=== PATIENT | male | born 1985 | race Caucasian/White ===

== ENCOUNTER 2016-03-21 03:54 | Emergency (ER) | payer OTHER ==
--- NOTE | 2016-03-21 04:17 | ED ---
General Adult HPI - General Chief complaint: Abdominal Pain Stated complaint: constipation Time Seen by Provider: 03/21/16 04:00 Source: patient, RN notes reviewed Mode of arrival: ambulatory Limitations: no limitations - History of Present Illness Initial comments: This is a 30-year-old male who presents emergency Department complaining of a three-day history of constipation. Patient states he has not had constipation problems before. Patient denies any narcotic use. Patient also complains that he has some hemorrhoids. Patient states he does have rectal pain and diffuse abdominal fullness. Patient denies any fever or chills patient denies any nausea vomiting patient denies any dysuria hematuria. Patient denies any other problems at this time. - Related Data Previous Rx's Medication Instructions Recorded Clindamycin HCl [Cleocin] 300 mg PO Q6H #40 cap 07/10/15 HYDROcodone/APAP 5-325MG [[place] 5] 1 each PO Q4HR PRN #20 tab 07/10/15 Levofloxacin [Levaquin] 750 mg PO DAILY #10 tab 03/21/16 metroNIDAZOLE [Flagyl] 500 mg PO QID 10 Days 03/21/16 Allergies Allergy/AdvReac Type Severity Reaction Status Date / Time Penicillins Allergy Unknown Verified 07/10/15 18:45 Childhood Review of Systems ROS Statement: Those systems with pertinent positive or pertinent negative responses have been documented in the HPI. ROS Other: All systems not noted in ROS Statement are negative. Past Medical History Past Medical History: No Reported History History of Any Multi-Drug Resistant Organisms: None Reported Past Surgical History: No Surgical Hx Reported Past Psychological History: Anxiety, Depression Smoking Status: Current every day smoker Past Alcohol Use History: None Reported Past Drug Use History: None Reported General Exam - General Exam Comments Initial Comments: GENERAL: Patient is well-developed and well-nourished. Patient is nontoxic and well- hydrated and is in moderate distress. ENT: Neck is soft and supple. No significant lymphadenopathy is noted. Oropharynx is clear. Moist mucous membranes. Neck has full range of motion without eliciting any pain. EYES: The sclera were anicteric and conjunctiva were pink and moist. Extraocular movements were intact and pupils were equal round and reactive to light. Eyelids were unremarkable. ABDOMEN: Soft and nontender with normal bowel sounds. No palpable organomegaly was noted. There is no palpable pulsatile mass. Rectal Patient appears to have a very small early abscess at the 12 o'clock position SKIN: Skin is clear with no lesions or rashes and otherwise unremarkable. NEUROLOGIC: Patient is alert and oriented x3. Cranial nerves II through XII are grossly intact. Motor and sensory are also intact. Normal speech, volume and content. Symmetrical smile. MUSCULOSKELETAL: Normal extremities with adequate strength and full range of motion. No lower extremity swelling or edema. No calf tenderness. LYMPHATICS: No significant lymphadenopathy is noted PSYCHIATRIC: Normal psychiatric evaluation. Normal interpersonal interactions appears functionally intact in deals appropriately with others. No signs of depression. No signs of anxiety. Limitations: no limitations Course Vital Signs 03/21/16 04:00 Temperature 96.6 F L Pulse Rate 74 Respiratory 16 Rate Blood Pressure 122/65 O2 Sat by Pulse 98 Oximetry Procedures - Incision & Drainage Consent Obtained: verbal consent Time Out Performed?: Yes Site: other (Perirectal) Anesthetic Used: lidocaine 1% I&D Cleaning Method: Chloroprep Sterile Field Used?: Yes Scalpel Used: #11 Needle Aspiration Performed?: Yes Irrigation Performed?: No I&D Drainage Obtained: Pus Culture Obtained?: No Complications: pain Patient Tolerated Procedure: well Medical Decision Making - Medical Decision Making KUB does show constipation. I did an I&D on the patient's rectal abscess I removed 4 mL of purulent fluid Disposition Clinical Impression: Rectal abscess, Constipation Disposition: HOME SELF-CARE Condition: Good Instructions: Abscess Incision and Drainage (ED), Constipation (ED), High Fiber Diet (ED) Additional Instructions: Patient should take some milk of magnesia Prescriptions: Levofloxacin [Levaquin] 750 mg PO DAILY #10 tab metroNIDAZOLE [Flagyl] 500 mg PO QID 10 Days Referrals: Andrea Louis MD [Primary Care Provider] - 1-2 days Time of Disposition: 04:34
--- NOTE | 2016-03-21 05:14 | XR ---
EXAMINATION TYPE: XR KUB DATE OF EXAM: 03/21/2016 4:35 AM CLINICAL HISTORY: Complains of constipation TECHNIQUE: 2 upright frontal radiographs of abdomen were obtained. COMPARISON: None. FINDINGS: There is moderate fecal material in the colon. No significant bowel obstruction is noted. Small bowel loops appear grossly unremarkable. There is no visceromegaly, pneumoperitoneum, or abnormal calcification appreciated. The lung bases are clear and the osseous structures are intact. IMPRESSION: Moderate fecal material in the colon. Overall nonobstructive bowel gas pattern.
[2016-03-21] MEDS ORDERED: KETOROLAC 60 MG/2 ML VIAL IM STA (05:21)
[2016-03-21] MEDS ORDERED: metroNIDAZOLE 500 MG TAB PO STA (05:22)
[2016-03-21] MEDS ORDERED: LEVOFLOXACIN 750 MG TAB PO STA (05:22)
[2016-03-21 05:33] VITALS: PULSE 68; RESP 18; TEMP 97.7
[2016-03-21 05:34] VITALS: BP 108/59
== END 2016-03-21 05:34 | disposition home or self-care (01) ==
LOC: EC 03:54
DX: K61.1 Rectal abscess (principal); K59.00 Constipation, unspecified; Z88.0 Allergy status to penicillin; F17.200 Nicotine dependence, unspecified, uncomplicated
CPT/HCPCS: 46040; 96372; 99284; 74000; J1885

== ENCOUNTER 2016-03-24 21:10 | Emergency (ER) | payer OTHER ==
[2016-03-24 21:28] VITALS: BP 132/63; PULSE 89; RESP 20; TEMP 98.9
[2016-03-24] MEDS ORDERED: HYDROcodone/APAP 5-325MG 1 EACH TAB PO STA (22:07)
--- NOTE | 2016-03-24 22:11 | ED ---
Skin/Abscess/FB HPI - General Chief complaint: Skin/Abscess/Foreign Body Stated complaint: abcess on rectum-revisit Time Seen by Provider: 03/24/16 21:52 Source: patient, RN notes reviewed Mode of arrival: ambulatory Limitations: no limitations - History of Present Illness Initial comments: 22-year-old male presents emergency department with a recheck of his rectal abscess. Patient states the senior underneath him underwent drainage of his rectal abscess. Patient states his. Today we do not follow-up care. Patient states today when he had a bowel movement heincreased drainage from the area states that he should be seen. Patient states he is still having pain to the rectum. Patient states that he has been using medications as prescribed. Patient states he is on antibiotics. Patient states that he was concerned due to the increased drainage without that he should be evaluated.Patient denies any recent fever, chills, shortness of breath, chest pain, back pain, abdominal pain, nausea vomiting, numbness or tingling, dysuria or hematuria, constipation or diarrhea, headaches or visual changes, or any other current symptoms. - Related Data Previous Rx's Medication Instructions Recorded Hydrocodone/Acetaminophen [[place] 1 each PO Q6HR PRN #10 tab 03/24/16 5-325] Sulfamethox-Tmp 800-160Mg [Bactrim 2 each PO Q12HR #56 tab 03/24/16 DS 800-160 mg] Allergies Allergy/AdvReac Type Severity Reaction Status Date / Time Penicillins Allergy Unknown Verified 03/24/16 21:29 Childhood Review of Systems ROS Statement: Those systems with pertinent positive or pertinent negative responses have been documented in the HPI. ROS Other: All systems not noted in ROS Statement are negative. Past Medical History Past Medical History: No Reported History History of Any Multi-Drug Resistant Organisms: None Reported Past Surgical History: No Surgical Hx Reported Past Psychological History: Anxiety, Depression Smoking Status: Current every day smoker Past Alcohol Use History: None Reported Past Drug Use History: None Reported General Exam Limitations: no limitations General appearance: alert, in no apparent distress Neck exam: Present: normal inspection. Absent: tenderness, meningismus, lymphadenopathy Respiratory exam: Present: normal lung sounds bilaterally. Absent: respiratory distress, wheezes, rales, rhonchi, stridor Cardiovascular Exam: Present: regular rate, normal rhythm, normal heart sounds. Absent: systolic murmur, diastolic murmur, rubs, gallop, clicks Rectal exam: Present: other (Patient does appear to have an abscess that is at the 12 o'clock position and location to the rectum that isn't draining actively on exam. There does not appear to be any induration. Does appear to be small in size with active drainage that is mostly bloody.) Back exam: Present: normal inspection Neurological exam: Present: alert, oriented X3, CN II-XII intact. Absent: motor sensory deficit Psychiatric exam: Present: normal affect, normal mood Skin exam: Present: warm, dry, intact, normal color. Absent: rash Course Vital Signs 03/24/16 21:27 Temperature 98.9 F Pulse Rate 89 Respiratory 20 Rate Blood Pressure 132/63 O2 Sat by Pulse 99 Oximetry Medical Decision Making - Medical Decision Making 30-year-old male presents emergency department with chief complaint of rectal abscess. This time it appears to be small and actively draining. We did discuss that we'll give him something to help with the pain. We discussed follow-up with surgeon and he is given on-call surgeries information. We discussed return parameters. Patient stated he understood and all his questions have been answered. He will be discharged home. Disposition Clinical Impression: Rectal abscess Disposition: HOME SELF-CARE Condition: Stable Instructions: Abscess (ED) Additional Instructions: Please use medication as discussed. Please follow up with family doctor if symptoms have not improved over the next two days. Please return to the emergency room if your symptoms increase or worsen or for any other concerns. Prescriptions: Hydrocodone/Acetaminophen [[place] 5-325] 1 each PO Q6HR PRN #10 tab PRN Reason: Pain Sulfamethox-Tmp 800-160Mg [Bactrim DS 800-160 mg] 2 each PO Q12HR #56 tab Referrals: Andrea Louis MD [Primary Care Provider] - 1-2 days Nicki Gallegos DO [Doctor of Osteopathic Medicine] - 1-2 days Time of Disposition: 22:11
== END 2016-03-24 22:15 | disposition home or self-care (01) ==
LOC: EC 21:10
DX: K61.1 Rectal abscess (principal); F17.200 Nicotine dependence, unspecified, uncomplicated; Z88.0 Allergy status to penicillin
CPT/HCPCS: 99282

== ENCOUNTER 2019-06-08 17:15 | Emergency (ER) | payer BC, OTHER ==
[2019-06-08 17:20] VITALS: TEMP 98
[2019-06-08] MEDS ORDERED: MORPHINE SULFATE 4 MG/ML SYRINGE IV STA (17:29)
[2019-06-08] MEDS ORDERED: SODIUM CHLORIDE 0.9% 1,000 ML IV STA ×2 (17:29→18:17)
--- NOTE | 2019-06-08 17:48 | ED ---
Chest Pain HPI - General Chief Complaint: Chest Pain Stated Complaint: Chest tightness Time Seen by Provider: 06/08/19 17:27 Source: patient, RN notes reviewed, old records reviewed Mode of arrival: ambulatory Limitations: no limitations - History of Present Illness Initial Comments: This is a 33-year-old male DF for evaluation patient Dese for evaluation regards to severe pain chest pain chest pain rating to his abdomen epigastric abdominal pain. States no prior history of similar pain pain started prior to arrival just prior to arrival patient states he feels little bit sweaty denies drug or alcohol use no history of any medical illness, patient does smoke. No recent travel history or sick contacts denying any history of fever nausea vomiting or diarrhea MD Complaint: chest pain -: hour(s) Onset: during rest Pain Location: substernal, left chest, epigastric Severity: severe Severity scale (1-10): 8 Quality: sharp Consistency: constant Improves With: nothing Worsens With: nothing Anginal Symptoms: diaphoresis, dyspnea Treatments Prior to Arrival: none - Related Data Previous Rx's Medication Instructions Recorded Hydrocodone/Acetaminophen [[place] 1 each PO Q6HR PRN #10 tab 03/24/16 5-325] Sulfamethox-Tmp 800-160Mg [Bactrim 2 each PO Q12HR #56 tab 03/24/16 DS 800-160 mg] Allergies Allergy/AdvReac Type Severity Reaction Status Date / Time Penicillins Allergy Unknown Verified 06/08/19 17:20 Childhood Review of Systems ROS Statement: Those systems with pertinent positive or pertinent negative responses have been documented in the HPI. ROS Other: All systems not noted in ROS Statement are negative. EKG Findings - EKG Comments: EKG Findings:: EKG shows sinus rhythm 75, [place] 172, QRS 90, QTc 417 Past Medical History Past Medical History: No Reported History History of Any Multi-Drug Resistant Organisms: None Reported Past Surgical History: No Surgical Hx Reported Past Psychological History: Anxiety, Depression Smoking Status: Current every day smoker Past Alcohol Use History: None Reported Past Drug Use History: None Reported General Exam Limitations: no limitations General appearance: alert, anxious, in distress, other (diaphoretic) Head exam: Present: atraumatic, normocephalic, normal inspection Eye exam: Present: normal appearance, PERRL, EOMI. Absent: scleral icterus, conjunctival injection, periorbital swelling ENT exam: Present: normal exam, mucous membranes moist Neck exam: Present: normal inspection. Absent: tenderness, meningismus, lymphadenopathy Respiratory exam: Present: normal lung sounds bilaterally. Absent: respiratory distress, wheezes, rales, rhonchi, stridor Cardiovascular Exam: Present: regular rate, normal rhythm, normal heart sounds. Absent: systolic murmur, diastolic murmur, rubs, gallop, clicks GI/Abdominal exam: Present: soft, normal bowel sounds. Absent: distended, tenderness, guarding, rebound, rigid Extremities exam: Present: normal inspection, full ROM, normal capillary refill. Absent: tenderness, pedal edema, joint swelling, calf tenderness Back exam: Present: normal inspection Neurological exam: Present: alert, oriented X3, CN II-XII intact Psychiatric exam: Present: normal affect, normal mood Skin exam: Present: warm, dry, intact, normal color. Absent: rash Course Vital Signs 06/08/19 06/08/19 06/08/19 17:17 17:49 18:08 Temperature 98.0 F Pulse Rate 75 74 76 Respiratory 22 16 16 Rate Blood Pressure 117/80 110/60 106/68 O2 Sat by Pulse 97 95 Oximetry 06/08/19 18:51 Temperature Pulse Rate 80 Respiratory 16 Rate Blood Pressure 151/84 O2 Sat by Pulse 100 Oximetry - Reevaluation(s) Reevaluation #1: 06/08/19 18:24 Medical record is reviewed Reevaluation #2: 06/08/19 18:24 Computed tomography scan is delayed secondary to COVID patient being in computed tomography scan, decontamination and inability to take patient down secondary to COVID patient Reevaluation #3: 06/08/19 19:17 Patient reassess having no acute shortness of breath chest pain is significantly improved pain medication in the ER Reevaluation #4: 06/08/19 19:17 Patient is updated made aware findings with labs and computed tomography scan, questions answered Reevaluation #5: 06/08/19 19:17 Patient given strict return parameters including symptoms watch out for, shortness of breath increasing fever decreasing appetite and malnutrition, anorexia. Patient denying current shortness of breath, symptoms started today patient informed symptoms are probably progressively get worse over the next week, patient states that he does have placed a quarantined and will return if symptoms do worsen Chest Pain MDM - MDM 33 male DF for evaluation of nonspecific chest pain. Patient states he does feel little weak and dehydrated, feeling better here in the emergency room with chest pain control, CT could be concerning for cold-like findings, patient is afebrile no laboratory changes in the 100% pulse ox on room air. Patient will be discharged home return for worsening symptoms Disposition Clinical Impression: Chest pain, Viral syndrome Narrative: possible COVID changes on CT Disposition: HOME SELF-CARE Condition: Good Instructions (If sedation given, give patient instructions): Chest Pain (ED), Viral Syndrome (ED) Is patient prescribed a controlled substance at d/c from ED?: No Referrals: Andrea Louis MD [Primary Care Provider] - 1-2 days
[2019-06-08 17:50] LABS: Basophils % (A) 0 %; Eosinophils # (A) 0.5 k/uL (0-0.7); Eosinophils % (A) 5 %; HCT 47.7 % (39.0-53.0); HGB 16.1 gm/dL (13.0-17.5); Lymphocytes # (A) 0.9 k/uL (1.0-4.8); Lymphocytes % (A) 9 %; MCH 30.8 pg (25.0-35.0); MCHC 33.7 g/dL (31.0-37.0); MCV 91.5 fL (80.0-100.0); Mean Platelet Volume 8.3; Monocytes # (A) 0.7 k/uL (0-1.0); Monocytes % (A) 7 %; Neutrophils # (A) 7.6 k/uL (1.3-7.7); Neutrophils % (A) 76 %; Platelet Count 259 k/uL (150-450); RBC 5.21 m/uL (4.30-5.90); RDW 12.4 % (11.5-15.5)
[2019-06-08 17:52] VITALS: RESP 16
--- NOTE | 2019-06-08 17:52 | XR ---
EXAMINATION TYPE: XR chest 2V DATE OF EXAM: 06/08/2019 COMPARISON: NONE HISTORY: Weakness, chest tightness, shortness of breath for one hour. TECHNIQUE: Frontal and lateral views of the chest are obtained. FINDINGS: There is no focal air space opacity, pleural effusion, or pneumothorax seen. The cardiac silhouette size is within normal limits. The osseous structures are intact. IMPRESSION: No acute cardiopulmonary process.
[2019-06-08 18:01] LABS: ALT 96 U/L (4-49); AST 46 U/L (17-59); African American GFR (CKD) >90 (>60 ml/min/1.73 sqM); Albumin 4.6 g/dL (3.5-5.0); Alkaline Phosphatase 122 U/L (38-126); Anion Gap 8 mmol/L; Blood Urea Nitrogen 16 mg/dL (9-20); Calcium 9.3 mg/dL (8.4-10.2); Carbon Dioxide 28 mmol/L (22-30); Chloride 103 mmol/L (98-107); Creatine Kinase 87 U/L (55-170); Glucose 112 mg/dL (74-99); Magnesium 1.9 mg/dL (1.6-2.3); Non-African American GFR(CKD) >90 (>60 ml/min/1.73 sqM); Phosphorus 3.6 mg/dL (2.5-4.5); Potassium 4.1 mmol/L (3.5-5.1); Sodium 139 mmol/L (137-145); Total Bilirubin 0.4 mg/dL (0.2-1.3); Total Protein 7.1 g/dL (6.3-8.2)
[2019-06-08 18:04] LABS: Partial Thromboplastin Time 23.1 sec (22.0-30.0); Prothrombin Time 10.1 sec (9.0-12.0)
[2019-06-08 18:20] LABS: Appearance,Urine Clear (Clear); Bilirubin,Urine Negative (Negative); Blood,Urine Negative (Negative); Color,Urine Yellow; Glucose,Urine (UA) Negative (Negative); Ketones,Urine Negative (Negative); Leukocyte Esterase,Urine Negative (Negative); Nitrite,Urine Negative (Negative); PH, Urine 6.5 (5.0-8.0); Protein,Urine Trace (Negative); Specific Gravity,Urine 1.027 (1.001-1.035)
[2019-06-08 18:52] VITALS: BP 151/84; PULSE 80
--- NOTE | 2019-06-08 19:05 | CT ---
EXAMINATION TYPE: CT angio thor/abd pel aorta DATE OF EXAM: 06/08/2019 COMPARISON: None. HISTORY: Chest pain today into back. CT DLP: 2446.8 mGycm. Automated Exposure Control for Dose Reduction was Utilized. CONTRAST: CTA scan of the thorax, abdomen and pelvis is performed without oral and without and with IV Contrast , patient injected with 100 mL of Isovue 370. Aneurysm protocol with 3-D reconstructed images created on a independent workstation and reviewed. FINDINGS: VASCULAR: There is a 4 vessel origin from aortic arch which is normal variant. There is patent celiac artery, SMA, bilateral single renal arteries, and ELEANOR. Patent common alignment with internal and ext ernal iliac arteries bilaterally. Patent common femoral arteries and bilateral groin with bifurcation into superficial and deep femoral arteries. No significant plaque or stenosis. No aneurysmal change in the aorta. No linear hypodensity to suggest dissection. LUNGS: Mild biapical pleural/parenchymal scarring. Slightly elevated left hemidiaphragm. Nonspecific areas of increased groundglass and linear opacity in the bilateral lower lobes more prominent posteri mary could reflect a combination of atelectasis and/or early infiltrates. Correlate clinically. No pl eural effusion or pneumothorax seen bilaterally. MEDIASTINUM: There are no greater than 1 cm hilar or mediastinal lymph nodes. No cardiomegaly or pe ricardial effusion is seen. LIVER/GB: No significant abnormality is appreciated. PANCREAS: No significant abnormality is seen. SPLEEN: No significant abnormality is seen. ADRENALS: No significant abnormality is seen. KIDNEYS: No significant abnormality is seen. BOWEL: Debris-filled stomach suggests recent meal ingestion. No suspicious small or large bowel dilat ation. GENITAL ORGANS: No gross abnormality seen. LYMPH NODES: No greater than 1cm abdominal or pelvic lymph nodes are appreciated. OSSEOUS STRUCTURES: Sacralized left L5 segment. OTHER: Small to moderate-sized fat-containing left inguinal hernia. IMPRESSION: No thoracic aortic aneurysm or dissection. No suspicious acute findings intraoperative p atient's symptoms of chest pain into back.
[2019-06-08 19:34] LABS: Amphetamine Screen,Urine Not Detected (NotDetected); Barbiturate Screen,Urine Not Detected (NotDetected); Benzodiazepines Screen,Urine Not Detected (NotDetected); Cocaine Screen,Urine Not Detected (NotDetected); Methadone Screen, Urine Not Detected (NotDetected); Opiate Screen,Urine Detected (NotDetected); Oxycodone Screen, Urine Not Detected (NotDetected); Phencyclidine Screen,Urine Not Detected (NotDetected); Tricyclic Antidepressant,Urine Not Detected (NotDetected); Urn Cannabinoid Scrn Not Detected (NotDetected)
== END 2019-06-08 19:52 | disposition home or self-care (01) ==
LOC: EC 17:15
DX: B34.9 Viral infection, unspecified (principal); E86.0 Dehydration; F17.200 Nicotine dependence, unspecified, uncomplicated; Z88.0 Allergy status to penicillin
CPT/HCPCS: 99285 ×2; 96374 ×2; 96361 ×3; 36415; 80053; 82550; 83605; 83735; 84100; 84484; 85025; 85610; 85730; 81003; 87040; 80306; 71046; 71275; 74174; J2270; Q9967

== ENCOUNTER → 2020-07-04 | Outpatient (CLI) | payer OTHER ==
--- NOTE | 2020-07-04 15:39 | EEG ---
ELECTROENCEPHALOGRAM REPORT DATE OF SERVICE: 07/04/2020 PREAMBLE: This is a 35-year-old male who has presented with memory loss and memory flashes since this past summer. The patient had COVID in May and continues to have respiratory issues. Family history of seizures. Sister and daughter has 2-3 febrile seizures. The patient had 5 concussions when younger, twice with loss of consciousness. This is a sleep-deprived EEG. EEG FINDINGS: This is a 21 channel routine EEG recording in a patient utilizing 10/20 international system with referential and bipolar montages. Background consists of well developed, well regulated, moderate voltage activity in 10-11 hertz alpha. Background is posterior dominant and reactive to eye opening and closing. Photic driving response was not seen. Some drowsiness was seen with appearance of bilaterally symmetric theta frequency rhythm. Stage 2 sleep was seen with presence of vertex waves and sleep spindles. No focal or generalized epileptiform activity was seen. EKG channel showed no arrhythmia. IMPRESSION: This is a normal awake, drowsy, and sleep EEG. No focal, lateralized, or epileptiform activity was seen. MMODL / IJN: [id number] /
== END ==
LOC: NEUROMAIN 07:47
PROVIDERS: ATTEND Family Medicine
DX: R41.3 Other amnesia (principal)
CPT/HCPCS: 95819

== ENCOUNTER 2020-10-25 06:17 | Emergency (ER) | payer OTHER ==
[2020-10-25 06:22] VITALS: TEMP 98.2
[2020-10-25] MEDS ORDERED: SODIUM CHLORIDE 0.9% 1,000 ML IV STA (06:32)
[2020-10-25] MEDS ORDERED: MAG HYDROX/AL HYDROX/SIMETH 30 ML, HYOSCYAMINE ELIXIR 10 ML PO STA ×2 (06:32)
[2020-10-25 06:57] LABS: Basophils % (A) 0 %; Eosinophils # (A) 0.4 k/uL (0-0.7); Eosinophils % (A) 4 %; HCT 45.6 % (39.0-53.0); HGB 15.7 gm/dL (13.0-17.5); Lymphocytes # (A) 0.9 k/uL (1.0-4.8); Lymphocytes % (A) 11 %; MCH 33.2 pg (25.0-35.0); MCHC 34.4 g/dL (31.0-37.0); MCV 96.6 fL (80.0-100.0); Mean Platelet Volume 7.7; Monocytes # (A) 0.4 k/uL (0-1.0); Monocytes % (A) 5 %; Neutrophils # (A) 6.5 k/uL (1.3-7.7); Neutrophils % (A) 78 %; Platelet Count 235 k/uL (150-450); RBC 4.72 m/uL (4.30-5.90); WBC 8.3 k/uL (3.8-10.6)
--- NOTE | 2020-10-25 07:01 | ED ---
Abdominal Pain HPI - General Chief Complaint: Abdominal Pain Stated Complaint: L Flank Pain Time Seen by Provider: 10/25/20 06:27 Source: patient, RN notes reviewed Mode of arrival: ambulatory Limitations: no limitations - History of Present Illness Initial Comments: This a 35-year-old male presents emergency Department with chief complaint left- sided abdominal pain. Patient states that started yesterday has gradually worsened. Patient states sharp, burning sensation. Patient states it's in his left upper quadrant. States it does radiate some denies any chest pain or shortness breath no diarrhea, constipation, dysuria, hematuria. Patient states she's had no prior abdominal surgeries denies any back pain no history kidney stones no other complaints. - Related Data Previous Rx's Medication Instructions Recorded Hydrocodone/Acetaminophen [[place] 1 each PO Q6HR PRN #10 tab 03/24/16 5-325] Sulfamethox-Tmp 800-160Mg [Bactrim 2 each PO Q12HR #56 tab 03/24/16 DS 800-160 mg] Omeprazole [PriLOSEC] 40 mg PO DAILY #14 cap 10/25/20 Allergies Allergy/AdvReac Type Severity Reaction Status Date / Time Penicillins Allergy Unknown Verified 10/25/20 06:22 Childhood Review of Systems ROS Statement: Those systems with pertinent positive or pertinent negative responses have been documented in the HPI. ROS Other: All systems not noted in ROS Statement are negative. Past Medical History Past Medical History: Asthma History of Any Multi-Drug Resistant Organisms: None Reported, MRSA Date of last positivie culture/infection: 05/2020 MDRO Source:: inner left thigh Past Surgical History: No Surgical Hx Reported Past Psychological History: Anxiety, Depression Smoking Status: Current every day smoker Past Alcohol Use History: Occasional Past Drug Use History: None Reported General Exam Limitations: no limitations General appearance: alert, in no apparent distress Head exam: Present: atraumatic, normocephalic, normal inspection Neck exam: Present: normal inspection, full ROM. Absent: tenderness, meningismus, lymphadenopathy Respiratory exam: Present: normal lung sounds bilaterally. Absent: respiratory distress, wheezes, rales, rhonchi, stridor Cardiovascular Exam: Present: regular rate, normal rhythm, normal heart sounds. Absent: systolic murmur, diastolic murmur, rubs, gallop, clicks GI/Abdominal exam: Present: soft, tenderness (Left upper quadrant), normal bowel sounds. Absent: distended, guarding, rebound, rigid Back exam: Absent: CVA tenderness (R), CVA tenderness (L) Neurological exam: Present: alert Skin exam: Present: warm, dry, intact, normal color. Absent: rash Course Vital Signs 10/25/20 10/25/20 06:18 07:54 Temperature 98.2 F Pulse Rate 73 63 Respiratory 20 16 Rate Blood Pressure 120/77 123/70 O2 Sat by Pulse 98 100 Oximetry Medical Decision Making - Medical Decision Making 35-year-old presented for abdominal pain. Patient did have some mild relief with GI cocktail. CT shows evidence of hepatomegaly and splenomegaly a though this was noted on prior secondary larger. There is no evidence of urinary tract infection, labs otherwise unremarkable. Patient discharged stable condition return parameters were discussed. Patient will be provided and GI follow-up. - Lab Data Result diagrams: 10/25/20 06:36 10/25/20 06:36 Lab Results 10/25/20 10/25/20 10/25/20 Range/Units 06:36 06:36 06:36 WBC 8.3 (3.8-10.6) k/uL RBC 4.72 (4.30-5.90) m/uL Hgb 15.7 (13.0-17.5) gm/dL Hct 45.6 (39.0-53.0) % MCV 96.6 (80.0-100.0) fL MCH 33.2 (25.0-35.0) pg MCHC 34.4 (31.0-37.0) g/dL RDW 14.0 (11.5-15.5) % Plt Count 235 (150-450) k/uL MPV 7.7 Neutrophils % 78 % Lymphocytes % 11 % Monocytes % 5 % Eosinophils % 4 % Basophils % 0 % Neutrophils # 6.5 (1.3-7.7) k/uL Lymphocytes # 0.9 L (1.0-4.8) k/uL Monocytes # 0.4 (0-1.0) k/uL Eosinophils # 0.4 (0-0.7) k/uL Basophils # 0.0 (0-0.2) k/uL Sodium 138 (137-145) mmol/L Potassium 4.4 (3.5-5.1) mmol/L Chloride 106 (98-107) mmol/L Carbon Dioxide 24 (22-30) mmol/L Anion Gap 8 mmol/L BUN 18 (9-20) mg/dL Creatinine 0.82 (0.66-1.25) mg/dL Est GFR (CKD-EPI)AfAm >90 (>60 ml/min/1.73 sqM) Est GFR (CKD-EPI)NonAf >90 (>60 ml/min/1.73 sqM) Glucose 101 H (74-99) mg/dL Calcium 9.4 (8.4-10.2) mg/dL Total Bilirubin 0.3 (0.2-1.3) mg/dL AST 37 (17-59) U/L ALT 58 H (4-49) U/L Alkaline Phosphatase 162 H (38-126) U/L Total Protein 7.2 (6.3-8.2) g/dL Albumin 4.5 (3.5-5.0) g/dL Lipase 196 (23-300) U/L Urine Color Yellow Urine Appearance Clear (Clear) Urine pH 5.5 (5.0-8.0) Ur Specific [place] >1.050 H (1.001-1.035) Urine Protein Trace H (Negative) Urine Glucose (UA) Negative (Negative) Urine Ketones Negative (Negative) Urine Blood Negative (Negative) Urine Nitrite Negative (Negative) Urine Bilirubin Negative (Negative) Urine Urobilinogen 2.0 (<2.0) mg/dL Ur Leukocyte Esterase Negative (Negative) Disposition Clinical Impression: Abdominal pain, Gastritis Disposition: HOME SELF-CARE Condition: Stable Instructions (If sedation given, give patient instructions): Gastritis (ED) Additional Instructions: Please return to the Emergency Department if symptoms worsen or any other concerns. Prescriptions: Omeprazole [PriLOSEC] 40 mg PO DAILY #14 cap Is patient prescribed a controlled substance at d/c from ED?: No Referrals: Magdalena Rodriguez NPC [REFERRING] - 1-2 days Irma Hendrix MD [STAFF PHYSICIAN] - 1-2 days Time of Disposition: 08:54
[2020-10-25 07:11] LABS: ALT 58 U/L (4-49); AST 37 U/L (17-59); African American GFR (CKD) >90 (>60 ml/min/1.73 sqM); Albumin 4.5 g/dL (3.5-5.0); Alkaline Phosphatase 162 U/L (38-126); Anion Gap 8 mmol/L; Blood Urea Nitrogen 18 mg/dL (9-20); Calcium 9.4 mg/dL (8.4-10.2); Carbon Dioxide 24 mmol/L (22-30); Chloride 106 mmol/L (98-107); Glucose 101 mg/dL (74-99); Lipase 196 U/L (23-300); Non-African American GFR(CKD) >90 (>60 ml/min/1.73 sqM); Potassium 4.4 mmol/L (3.5-5.1); Sodium 138 mmol/L (137-145); Total Bilirubin 0.3 mg/dL (0.2-1.3); Total Protein 7.2 g/dL (6.3-8.2)
--- NOTE | 2020-10-25 07:37 | CT ---
EXAMINATION TYPE: CT abdomen pelvis w con DATE OF EXAM: 10/25/2020 COMPARISON: 06/08/2019 HISTORY: 35-year-old male Abdominal pain TECHNIQUE: Contiguous axial scanning of the abdomen and pelvis following administration of 100 ml Iso amado 300 IV contrast. Delayed images through the kidneys and coronal/sagittal reconstructions perform ed. CT DLP: 1533.6 mGycm Automated exposure control for dose reduction was used. FINDINGS: Heart normal size without pericardial effusion. Lung bases clear without pleural effusion. Liver enlarged at 19.4 cm versus 18.3 cm, previously. No focal liver lesion or biliary ductal dilatat ion. Portal venous system is patent. Gallbladder is collapsed. Adrenal glands, kidneys, and pancreas within normal limits. Spleen mildly enlarged at 14.7 cm, unchanged. No dilated small bowel, free fluid, or free air. No mesenteric or retroperitoneal lymphadenopathy. Portions of a normal appendix are visualized. There is mild stool burden. No pericolic inflammatory c hange. Mild circumferential bladder wall thickening may relate to partial distention. Prostate gland measure s 4.3 cm wide. No abnormal fluid collection in the pelvis or pelvic lymphadenopathy. Bones: Left L5 hemisacralization with an assimilation joint. No osseous destructive process. IMPRESSION: 1. MILD HEPATOSPLENOMEGALY (19.4 CM LIVER AND 14.7 CM SPLEEN). LIVER PREVIOUSLY MEASURED 18.3 CM. SPL EEN SIZE IS UNCHANGED. 2. MILD CIRCUMFERENTIAL BLADDER WALL THICKENING MAY RELATE TO PARTIAL DISTENTION. CORRELATE TO EXCLUD E CYSTITIS. 3. OTHERWISE, NO ACUTE INFLAMMATORY PROCESS IDENTIFIED IN THE ABDOMEN OR PELVIS TO EXPLAIN THE PATIEN T'S SYMPTOMS. 4. INCIDENTAL LEFT L5 HEMISACRALIZATION WITH AN ASSIMILATION JOINT.
[2020-10-25 07:55] VITALS: BP 123/70; PULSE 63; RESP 16
[2020-10-25] MEDS ORDERED: KETOROLAC 15 MG/ML 1 ML VIAL IVP STA (07:55)
[2020-10-25 08:25] LABS: Appearance,Urine Clear (Clear); Bilirubin,Urine Negative (Negative); Blood,Urine Negative (Negative); Color,Urine Yellow; Glucose,Urine (UA) Negative (Negative); Ketones,Urine Negative (Negative); Leukocyte Esterase,Urine Negative (Negative); Nitrite,Urine Negative (Negative); PH, Urine 5.5 (5.0-8.0); Protein,Urine Trace (Negative)
[2020-10-25 08:51] LABS: Specific Gravity,Urine >1.050 (1.001-1.035)
[2020-10-25] MEDS ORDERED: ACET/COD 300 MG/30 MG STARTER PACK 6 TAB BTL PO STA (08:54)
== END 2020-10-25 09:06 | disposition home or self-care (01) ==
LOC: EC 06:17
DX: K29.70 Gastritis, unspecified, without bleeding (principal); J45.909 Unspecified asthma, uncomplicated; F17.200 Nicotine dependence, unspecified, uncomplicated; Z88.0 Allergy status to penicillin
CPT/HCPCS: 36415; 80053; 83690; 85025; 81003; 74177; 99284; 96374; 96361; J1885; Q9967

== ENCOUNTER → 2021-02-18 | Outpatient (CLI) | payer OTHER ==
--- NOTE | 2021-02-18 10:42 | US ---
EXAMINATION TYPE: US abdomen complete DATE OF EXAM: 02/18/2021 COMPARISON: NONE CLINICAL HISTORY: R10.9 ABDOMINAL PAIN. EXAM MEASUREMENTS: Liver Length: 15.2 cm Gallbladder Wall: 0.2 cm CBD: 0.4 cm Spleen: 13.9 cm Right Kidney: 10.6 x 4.2 x 5.4 cm Left Kidney: 11.4 x 5.2 x 4.9 cm Pancreas: Portions visualized wnl partially obscured by bowel gas Liver: wnl Gallbladder: echogenic foci, non-mobile measuring 0.4cm, no wall thickening Evidence for sonographic Louise's sign: No CBD: wnl Spleen: splenomegaly Right Kidney: Inferior pole obscured by bowel gas Left Kidney: Inferior pole obscured by bowel gas Upper IVC: wnl Abd Aorta: bifurcation obscured by overlying bowel gas IMPRESSION: 1. Cholelithiasis. No suspicious changes to suggest acute cholecystitis. 2. Splenomegaly
== END | disposition home or self-care (01) ==
LOC: RADUSWWP 09:44
PROVIDERS: ATTEND Family Medicine
DX: K80.20 Calculus of gallbladder without cholecystitis without obstruction (principal); R16.1 Splenomegaly, not elsewhere classified
CPT/HCPCS: 76700

== ENCOUNTER 2021-02-28 11:37 | Emergency (ER) | payer OTHER ==
[2021-02-28 11:45] VITALS: BP 127/83; PULSE 63; RESP 18; TEMP 98
--- NOTE | 2021-02-28 11:55 | ED ---
General Adult HPI - General Chief complaint: Syncope Stated complaint: fall/head injury Time Seen by Provider: 02/28/21 11:46 Source: patient Mode of arrival: ambulatory Limitations: no limitations - History of Present Illness Initial comments: Dictation was produced using [employer] dictation software. please excuse any grammatical, word or spelling errors. Chief Complaint: 35-year-old male presents to the emergency department for abdo sandra pain and syncope History of Present Illness: 35-year-old male who states that today he started developing left lower quadrant abdominal pain. He states that the pain was too left lower quadrant and suprapubic area. Patient states he was bending over when he felt intense pain to his abdominal area. He knows he passes out and wakes up with The ceiling. Patient denies any history of syncope. Denies any history of cardiac disease. He takes multiple medications including lithium and other psychiatric meds. Patient denies any constitutional symptoms. No diarrhea but hasn't had a bowel movement the last 12 hours. No nausea or vomiting. Patient is history of gallstones and is scheduled for cholecystectomy in the near future. The ROS documented in this emergency department record has been reviewed and confirmed by me. Those systems with pertinent positive or negative responses have been documented in the HPI. All other systems are other negative and/or noncontributory. PHYSICAL EXAM: General Impression: Alert and oriented x3, not in acute distress HEENT: Normocephalic atraumatic, extra-ocular movements intact, pupils equal and reactive to light bilaterally, mucous membranes moist. Cardiovascular: Heart regular rate and rhythm Chest: Able to complete full sentences, no retractions, no tachypnea Abdomen: abdomen soft, negative Louise sign, palpatory tenderness to the left lower quadrant and suprapubic area, no pain in McBurney's point, non-distended, no organomegaly Musculoskeletal: Pulses present and equal in all extremities, no peripheral edema Motor: no focal deficits noted Neurological: CN II-XII grossly intact, no focal motor or sensory deficits noted Skin: Intact with no visualized rashes Psych: Normal affect and mood ED course: 35-year-old male presents emergency department for abdominal pain and syncopal episode. Vital signs upon arrival are within acceptable limits. Laboratory evaluation obtained. CBC unremarkable. Metabolic panel is negative. Urinalysis is negative. [place] level was 0.2. Computed tomography scan abdomen pelvis is unremarkable. Patient reevaluated at bedside finally stable medical condition. Patient be discharge. Advised follow-up with primary care doctor. EKG interpretation: Ventricular rate 57, sinus bradycardia,. Interval 180, QRS 92, QTC 426. No [place] prolongation, no QTC prolongation, no ST or T-wave changes noted. No prolonged QT, no evidence of hypertrophic cardiomyopathy, no Brugada, no delta wave Overall, this EKG is unremarkable - Related Data Previous Rx's Medication Instructions Recorded Hydrocodone/Acetaminophen [[place] 1 each PO Q6HR PRN #10 tab 03/24/16 5-325] Sulfamethox-Tmp 800-160Mg [Bactrim 2 each PO Q12HR #56 tab 03/24/16 DS 800-160 mg] Omeprazole [PriLOSEC] 40 mg PO DAILY #14 cap 10/25/20 Allergies Allergy/AdvReac Type Severity Reaction Status Date / Time Penicillins Allergy Unknown Verified 02/28/21 11:44 Childhood Review of Systems ROS Statement: Those systems with pertinent positive or pertinent negative responses have been documented in the HPI. ROS Other: All systems not noted in ROS Statement are negative. Past Medical History Past Medical History: Asthma Additional Past Medical History / Comment(s): gallstones History of Any Multi-Drug Resistant Organisms: None Reported, MRSA Date of last positivie culture/infection: 05/2020 MDRO Source:: inner left thigh Past Surgical History: No Surgical Hx Reported Past Psychological History: Anxiety, Depression Smoking Status: Current every day smoker Past Alcohol Use History: Occasional Past Drug Use History: Marijuana General Exam Limitations: no limitations Course Vital Signs 02/28/21 11:41 Temperature 98.0 F Pulse Rate 63 Respiratory 18 Rate Blood Pressure 127/83 O2 Sat by Pulse 100 Oximetry Medical Decision Making - Lab Data Result diagrams: 02/28/21 12:05 02/28/21 12:05 Lab Results 02/28/21 02/28/21 02/28/21 Range/Units 12:05 12:05 12:45 WBC 8.0 (3.8-10.6) k/uL RBC 4.96 (4.30-5.90) m/uL Hgb 15.9 (13.0-17.5) gm/dL Hct 46.1 (39.0-53.0) % MCV 93.0 (80.0-100.0) fL MCH 32.0 (25.0-35.0) pg MCHC 34.4 (31.0-37.0) g/dL RDW 12.1 (11.5-15.5) % Plt Count 229 (150-450) k/uL MPV 7.6 Neutrophils % 76 % Lymphocytes % 11 % Monocytes % 5 % Eosinophils % 5 % Basophils % 1 % Neutrophils # 6.1 (1.3-7.7) k/uL Lymphocytes # 0.9 L (1.0-4.8) k/uL Monocytes # 0.4 (0-1.0) k/uL Eosinophils # 0.4 (0-0.7) k/uL Basophils # 0.1 (0-0.2) k/uL Sodium 136 L (137-145) mmol/L Potassium 5.0 (3.5-5.1) mmol/L Chloride 104 (98-107) mmol/L Carbon Dioxide 22 (22-30) mmol/L Anion Gap 10 mmol/L BUN 16 (9-20) mg/dL Creatinine 0.94 (0.66-1.25) mg/dL Est GFR (CKD-EPI)AfAm >90 (>60 ml/min/1.73 sqM) Est GFR (CKD-EPI)NonAf >90 (>60 ml/min/1.73 sqM) Glucose 96 (74-99) mg/dL Calcium 9.6 (8.4-10.2) mg/dL Total Bilirubin 0.8 (0.2-1.3) mg/dL AST 34 (17-59) U/L ALT 33 (4-49) U/L Alkaline Phosphatase 98 (38-126) U/L Total Protein 7.7 (6.3-8.2) g/dL Albumin 4.7 (3.5-5.0) g/dL Lipase 45 (23-300) U/L Urine Color Light Yellow Urine Appearance Clear (Clear) Urine pH 5.5 (5.0-8.0) Ur Specific [place] 1.023 (1.001-1.035) Urine Protein Negative (Negative) Urine Glucose (UA) Negative (Negative) Urine Ketones Negative (Negative) Urine Blood Negative (Negative) Urine Nitrite Negative (Negative) Urine Bilirubin Negative (Negative) Urine Urobilinogen <2.0 (<2.0) mg/dL Ur Leukocyte Esterase Negative (Negative) [place] 0.2 mmol/L Disposition Clinical Impression: Abdominal pain, Syncope Disposition: HOME SELF-CARE Condition: Fair Instructions (If sedation given, give patient instructions): Abdominal Pain (ED) Is patient prescribed a controlled substance at d/c from ED?: No Referrals: Andrea Louis MD [Primary Care Provider] - 1-2 days
[2021-02-28 12:13] LABS: Basophils # (A) 0.1 k/uL (0-0.2); Basophils % (A) 1 %; Eosinophils # (A) 0.4 k/uL (0-0.7); Eosinophils % (A) 5 %; HCT 46.1 % (39.0-53.0); HGB 15.9 gm/dL (13.0-17.5); Lymphocytes # (A) 0.9 k/uL (1.0-4.8); Lymphocytes % (A) 11 %; MCHC 34.4 g/dL (31.0-37.0); Mean Platelet Volume 7.6; Monocytes # (A) 0.4 k/uL (0-1.0); Monocytes % (A) 5 %; Neutrophils # (A) 6.1 k/uL (1.3-7.7); Neutrophils % (A) 76 %; Platelet Count 229 k/uL (150-450); RBC 4.96 m/uL (4.30-5.90); RDW 12.1 % (11.5-15.5)
[2021-02-28 12:25] LABS: ALT 33 U/L (4-49); AST 34 U/L (17-59); African American GFR (CKD) >90 (>60 ml/min/1.73 sqM); Albumin 4.7 g/dL (3.5-5.0); Alkaline Phosphatase 98 U/L (38-126); Anion Gap 10 mmol/L; Blood Urea Nitrogen 16 mg/dL (9-20); Calcium 9.6 mg/dL (8.4-10.2); Carbon Dioxide 22 mmol/L (22-30); Chloride 104 mmol/L (98-107); Glucose 96 mg/dL (74-99); Lipase 45 U/L (23-300); Lithium 0.2 mmol/L; Non-African American GFR(CKD) >90 (>60 ml/min/1.73 sqM); Sodium 136 mmol/L (137-145); Total Bilirubin 0.8 mg/dL (0.2-1.3); Total Protein 7.7 g/dL (6.3-8.2)
--- NOTE | 2021-02-28 12:40 | CT ---
EXAMINATION TYPE: CT abdomen pelvis w con DATE OF EXAM: 02/28/2021 COMPARISON: 10/25/2020 HISTORY: Left upper quadrant pain CT DLP: 1477.2 mGycm Automated exposure control for dose reduction was used. TECHNIQUE: Helical acquisition of images was performed from the lung bases through the pelvis. CONTRAST: Performed without Oral Contrast and with IV Contrast, patient injected with 100 mL of Isovue 300. FINDINGS: The lung bases are clear. The bowel loops are normal in caliber and there is no evidence of obstruction. No inflammatory change s are identified in the mesentery and there is no free intraperitoneal air or fluid. The gallbladder is normal without gallstones, wall thickening, distention or pericholecystic fluid. T here is no biliary ductal dilatation. There is no focal mass or organomegaly involving the liver, pancreas, spleen or adrenal glands. The kidneys excrete contrast promptly and symmetrically and there is no solid renal mass or hydroneph rosis. There is no retroperitoneal adenopathy and the caliber of the abdominal aorta is normal. There is no pelvic mass, free fluid, abscess or adenopathy. The osseous structures are intact. IMPRESSION: No significant abnormality seen.
[2021-02-28 12:57] LABS: Appearance,Urine Clear (Clear); Bilirubin,Urine Negative (Negative); Blood,Urine Negative (Negative); Color,Urine Light Yellow; Glucose,Urine (UA) Negative (Negative); Ketones,Urine Negative (Negative); Leukocyte Esterase,Urine Negative (Negative); Nitrite,Urine Negative (Negative); PH, Urine 5.5 (5.0-8.0); Protein,Urine Negative (Negative); Specific Gravity,Urine 1.023 (1.001-1.035); Urobilinogen,Urine <2.0 mg/dL (<2.0)
== END 2021-02-28 13:15 | disposition home or self-care (01) ==
LOC: EC 11:37
DX: R10.32 Left lower quadrant pain (principal); R55 Syncope and collapse; J45.909 Unspecified asthma, uncomplicated; F41.9 Anxiety disorder, unspecified; F32.A Depression, unspecified; F17.200 Nicotine dependence, unspecified, uncomplicated; F12.90 Cannabis use, unspecified, uncomplicated; Z88.0 Allergy status to penicillin
CPT/HCPCS: 99284; 36415; 93005; 80053; 83690; 80178; 85025; 81003; 74177; Q9967

== ENCOUNTER 2021-07-25 15:21 | Emergency (ER) | payer OTHER ==
[2021-07-25 16:22] VITALS: TEMP 98.1
[2021-07-25] MEDS ORDERED: SODIUM CHLORIDE 0.9% 2,000 ML IV STA (17:33)
[2021-07-25] MEDS ORDERED: CLINDAMYCIN 900 MG in DEXTROSE 5% IN WATER 50 ML IVPB STA ×2 (17:33)
[2021-07-25 18:14] LABS: Basophils # (A) 0.1 k/uL (0-0.2); Basophils % (A) 1 %; Eosinophils # (A) 0.5 k/uL (0-0.7); Eosinophils % (A) 5 %; HCT 46.3 % (39.0-53.0); HGB 15.6 gm/dL (13.0-17.5); Lymphocytes % (A) 10 %; MCH 31.9 pg (25.0-35.0); MCHC 33.6 g/dL (31.0-37.0); MCV 94.9 fL (80.0-100.0); Mean Platelet Volume 7.7; Monocytes # (A) 0.5 k/uL (0-1.0); Monocytes % (A) 5 %; Neutrophils # (A) 7.7 k/uL (1.3-7.7); Neutrophils % (A) 78 %; Platelet Count 260 k/uL (150-450); RBC 4.88 m/uL (4.30-5.90); WBC 9.8 k/uL (3.8-10.6)
[2021-07-25 18:22] LABS: ALT 40 U/L (4-49); AST 27 U/L (17-59); African American GFR (CKD) >90 (>60 ml/min/1.73 sqM); Albumin 4.5 g/dL (3.5-5.0); Alkaline Phosphatase 126 U/L (38-126); Anion Gap 7 mmol/L; Blood Urea Nitrogen 12 mg/dL (9-20); Calcium 9.1 mg/dL (8.4-10.2); Carbon Dioxide 27 mmol/L (22-30); Chloride 103 mmol/L (98-107); Glucose 92 mg/dL (74-99); Non-African American GFR(CKD) >90 (>60 ml/min/1.73 sqM); Potassium 4.3 mmol/L (3.5-5.1); Sodium 137 mmol/L (137-145); Total Bilirubin 0.7 mg/dL (0.2-1.3); Total Protein 7.1 g/dL (6.3-8.2)
[2021-07-25] MEDS ORDERED: MORPHINE SULFATE 4 MG/ML SYRINGE IVP STA ×2 (18:46→18:49)
--- NOTE | 2021-07-25 18:54 | CT ---
EXAMINATION TYPE: CT pelvis w con DATE OF EXAM: 07/25/2021 COMPARISON: 02/28/2021 HISTORY: inguinal abcess right CT DLP: 759.9 mGycm Automated exposure control for dose reduction was used. CONTRAST: Performed with IV Contrast, patient injected with 100 mL of Isovue 300. Images obtained from the iliac crests to the subtrochanteric femurs without contrast. There is some mild subcutaneous edema at the medial right upper thigh. This is not completely evaluat ed. No inguinal hernia. No evidence of any significant inguinal adenopathy. Bladder distends smoothly. No free fluid in the pelvis. The appendix appears normal. No evidence of a bowel obstruction. No free air. No sign of ascites. The bony pelvis is intact. The hip joints are in tact. IMPRESSION: Medial right upper thigh subcutaneous edema that could relate to cellulitis. Limited exam. Abnormalit y appears new compared to the old exam.
[2021-07-25] MEDS ORDERED: LIDOCAINE 1% INJ 10MG/ML (5 ML VIAL-PF) SQ ONE (19:38)
[2021-07-25 20:01] LABS: Erythrocyte Sedimentation Rate 16 mm/hr (0-15)
--- NOTE | 2021-07-25 20:54 | ED ---
Skin/Abscess/FB HPI - General Chief complaint: Skin/Abscess/Foreign Body Stated complaint: Abcess Time Seen by Provider: 07/25/21 17:11 Source: patient, family Mode of arrival: ambulatory Limitations: no limitations - History of Present Illness Initial comments: Patient is a 36-year-old male who presents to the emergency department with a chief complaint of groin abscess. Patient states he was evaluated at [facility] on 07/23/21 and diagnosed with abscess but they were not comfortable draining it. Patient states they referred him to urology and gave him Bactrim however he has not filled the prescription yet. Patient reports increased pain and swelling in the groin area. He denies penile pain, testicular pain, burning with urination, and blood in the urine. He has no concern for sexual transmitted infections. No fever, chills, or abdominal pain. Admits to history of rectal abscess and MRSA. - Related Data Home Medications Medication Instructions Recorded Confirmed Doxepin [SINEquan] 10 mg PO BID 02/28/21 02/28/21 Famotidine [Pepcid] 20 mg PO BID 02/28/21 02/28/21 Gabapentin [Neurontin] 400 mg PO BID 02/28/21 02/28/21 [place] Carbonate [[place] 300 mg PO DAILY 02/28/21 02/28/21 Carbonate ER] buPROPion XL [Wellbutrin XL] 150 mg PO DAILY 02/28/21 02/28/21 cloNIDine HCL [Catapres] 0.2 mg PO BID 02/28/21 02/28/21 Previous Rx's Medication Instructions Recorded Omeprazole [PriLOSEC] 40 mg PO DAILY #14 cap 10/25/20 Clindamycin HCl 300 mg PO Q6HR 10 Days #40 cap 07/25/21 Allergies Allergy/AdvReac Type Severity Reaction Status Date / Time Penicillins Allergy Unknown Verified 07/25/21 16:22 Childhood Review of Systems ROS Statement: Those systems with pertinent positive or pertinent negative responses have been documented in the HPI. ROS Other: All systems not noted in ROS Statement are negative. Past Medical History Past Medical History: Asthma Additional Past Medical History / Comment(s): gallstones History of Any Multi-Drug Resistant Organisms: None Reported, MRSA Date of last positivie culture/infection: 05/2020 MDRO Source:: inner left thigh Past Surgical History: No Surgical Hx Reported Past Psychological History: Anxiety, Depression Smoking Status: Current every day smoker Past Alcohol Use History: Occasional General Exam Limitations: no limitations General appearance: alert, in no apparent distress Head exam: Present: atraumatic, normocephalic, normal inspection Eye exam: Present: normal appearance, PERRL, EOMI. Absent: scleral icterus, conjunctival injection, periorbital swelling Respiratory exam: Present: normal lung sounds bilaterally. Absent: respiratory distress, wheezes, rales, rhonchi, stridor Cardiovascular Exam: Present: regular rate, normal rhythm, normal heart sounds. Absent: systolic murmur, diastolic murmur, rubs, gallop, clicks GI/Abdominal exam: Present: soft, normal bowel sounds. Absent: distended, tenderness, guarding, rebound, rigid exam: Present: testicular tenderness, scrotal swelling. Absent: urethral discharge Neurological exam: Present: alert, oriented X3, CN II-XII intact Psychiatric exam: Present: normal affect, normal mood Course Vital Signs 07/25/21 07/25/21 07/25/21 16:18 19:04 21:00 Temperature 98.1 F Pulse Rate 78 80 74 Respiratory 20 18 16 Rate Blood Pressure 123/77 130/86 128/79 O2 Sat by Pulse 95 98 98 Oximetry Procedures - Incision & Drainage Site: lower extremity (Right inguinal region) Size (cm): 8 Anesthetic Used: lidocaine 1% I&D Cleaning Method: Betadine Sterile Field Used?: Yes I&D Drainage Obtained: Pus, Blood Culture Obtained?: Yes Patient Tolerated Procedure: well, no complications Medical Decision Making - Medical Decision Making This is a 36-year-old male who presents with groin abscess. Thorough history and examination were performed. Patient is afebrile. Denies chills. There is fluctuance in the right inguinal region with questionable scrotal involvement. No induration. No erythema or swelling of the testicles. I will image in order to assess if incision and drainage can be performed here in the emergency department. Laboratory studies were obtained which are unremarkable. Normal white count at 9.8. Pelvis CT with contrast shows medial right upper thigh subcutaneous edema. The groin was cleaned thoroughly and local anesthetic was injected. Incision and drainage was performed with copious purulent fluid. Blood cultures pending. Dr. Walden attempted to pack the abscess however was unsuccessful. Patient had significant relief of pain and swelling. With patient's MRSA history he will be discharged with clindamycin. I did stres s the importance of taking this antibiotic. He received IV clindamycin in the emergency department. Wound care education was provided. Return parameters discussed. Patient verbalizes understanding and is agreeable to plan. Dr. Walden is my attending. - Lab Data Result diagrams: 07/25/21 17:58 07/25/21 17:58 Lab Results 07/25/21 07/25/21 07/25/21 Range/Units 17:58 17:58 17:58 WBC 9.8 (3.8-10.6) k/uL RBC 4.88 (4.30-5.90) m/uL Hgb 15.6 (13.0-17.5) gm/dL Hct 46.3 (39.0-53.0) % MCV 94.9 (80.0-100.0) fL MCH 31.9 (25.0-35.0) pg MCHC 33.6 (31.0-37.0) g/dL RDW 13.0 (11.5-15.5) % Plt Count 260 (150-450) k/uL MPV 7.7 Neutrophils % 78 % Lymphocytes % 10 % Monocytes % 5 % Eosinophils % 5 % Basophils % 1 % Neutrophils # 7.7 (1.3-7.7) k/uL Lymphocytes # 1.0 (1.0-4.8) k/uL Monocytes # 0.5 (0-1.0) k/uL Eosinophils # 0.5 (0-0.7) k/uL Basophils # 0.1 (0-0.2) k/uL ESR 16 H (0-15) mm/hr Sodium 137 (137-145) mmol/L Potassium 4.3 (3.5-5.1) mmol/L Chloride 103 (98-107) mmol/L Carbon Dioxide 27 (22-30) mmol/L Anion Gap 7 mmol/L BUN 12 (9-20) mg/dL Creatinine 0.86 (0.66-1.25) mg/dL Est GFR (CKD-EPI)AfAm >90 (>60 ml/min/1.73 sqM) Est GFR (CKD-EPI)NonAf >90 (>60 ml/min/1.73 sqM) Glucose 92 (74-99) mg/dL Plasma Lactic Acid Henrry 0.7 (0.7-2.0) mmol/L Calcium 9.1 (8.4-10.2) mg/dL Total Bilirubin 0.7 (0.2-1.3) mg/dL AST 27 (17-59) U/L ALT 40 (4-49) U/L Alkaline Phosphatase 126 (38-126) U/L C-Reactive Protein 5.0 H (<1.0) mg/dL Total Protein 7.1 (6.3-8.2) g/dL Albumin 4.5 (3.5-5.0) g/dL Disposition Clinical Impression: Abscess Disposition: HOME SELF-CARE Condition: Good Instructions (If sedation given, give patient instructions): MRSA (Methicillin- Resistant Staphylococcus Aureus) (ED), Abscess Incision and Drainage (ED), Abscess (ED) Additional Instructions: Please take medication as directed. Use warm press to aid abscess drainage. Keep wound clean and dry. Change dressing daily. Follow-up with primary care provider in one to 2 days. Return to the emergency department if you experience new, concerning, or worsening symptoms. Prescriptions: Clindamycin HCl 300 mg PO Q6HR 10 Days #40 cap Is patient prescribed a controlled substance at d/c from ED?: No Referrals: Andrea Louis MD [Primary Care Provider] - 1-2 days Time of Disposition: 20:54
[2021-07-25 21:18] VITALS: BP 128/79; PULSE 74; RESP 16
== END 2021-07-25 21:19 | disposition home or self-care (01) ==
LOC: EC 15:21
DX: L02.214 Cutaneous abscess of groin (principal); F32.A Depression, unspecified; F41.9 Anxiety disorder, unspecified; J45.909 Unspecified asthma, uncomplicated; F17.200 Nicotine dependence, unspecified, uncomplicated; Z88.0 Allergy status to penicillin; Z79.899 Other long term (current) drug therapy
CPT/HCPCS: 36415; 80053; 85652; 83605; 85025; 86140; 87040; 87070; 87205; 72193; 10060; 99284; 96374; 96375; J2270; J2001; Q9967

== ENCOUNTER → 2021-10-07 | Outpatient (CLI) | payer OTHER ==
[2021-10-07 13:07] LABS: Basophils # (A) 0.1 k/uL (0-0.2); Basophils % (A) 1 %; Eosinophils # (A) 0.5 k/uL (0-0.7); Eosinophils % (A) 7 %; HCT 46.1 % (39.0-53.0); HGB 15.5 gm/dL (13.0-17.5); Lymphocytes % (A) 17 %; MCH 31.6 pg (25.0-35.0); MCHC 33.6 g/dL (31.0-37.0); MCV 93.8 fL (80.0-100.0); Mean Platelet Volume 7.7; Monocytes # (A) 0.3 k/uL (0-1.0); Monocytes % (A) 6 %; Neutrophils # (A) 4.1 k/uL (1.3-7.7); Neutrophils % (A) 68 %; Platelet Count 259 k/uL (150-450); RBC 4.91 m/uL (4.30-5.90); RDW 12.9 % (11.5-15.5)
[2021-10-07 13:14] LABS: INR 0.9 (<1.2); Partial Thromboplastin Time 24.5 sec (22.0-30.0); Prothrombin Time 10.3 sec (9.0-12.0)
[2021-10-07 13:29] LABS: ALT 51 U/L (4-49); AST 42 U/L (17-59); African American GFR (CKD) >90 (>60 ml/min/1.73 sqM); Albumin 4.4 g/dL (3.5-5.0); Albumin/Globulin Ratio 1.8; Alkaline Phosphatase 133 U/L (38-126); Anion Gap 5 mmol/L; Blood Urea Nitrogen 14 mg/dL (9-20); C Reactive Protein 1.1 mg/dL (<1.0); Calcium 9.4 mg/dL (8.4-10.2); Carbon Dioxide 26 mmol/L (22-30); Chloride 106 mmol/L (98-107); Globulin 2.5 g/dL; Glucose 89 mg/dL (74-99); Lithium 0.5 mmol/L; Non-African American GFR(CKD) >90 (>60 ml/min/1.73 sqM); Potassium 4.3 mmol/L (3.5-5.1); Sodium 137 mmol/L (137-145); Total Bilirubin 0.5 mg/dL (0.2-1.3); Total Protein 6.9 g/dL (6.3-8.2)
[2021-10-07 13:36] LABS: Creatine Kinase MB 0.9 ng/mL (0.0-2.4); Troponin I <0.012 ng/mL (0.000-0.034)
[2021-10-07 21:12] LABS: Chol/HDL Ratio 3.66 Ratio; LDL Cholesterol,Calculated 86.3 mg/dL (0.0-131.0)
[2021-10-07 22:20] LABS: Hepatitis A Antibody IgM Nonreactive (Nonreactive); Hepatitis B Core IgM Nonreactive (Nonreactive); Hepatitis B Surface Antigen Nonreactive (Nonreactive); Hepatitis C IgG Antibody Nonreactive (Nonreactive)
[2021-10-08 03:38] LABS: HIV 2 AB Non-Reactive (Non-Reactive); HIV AB P24 Non-Reactive (Non-Reactive); HIV P24 AG Non-Reactive (Non-Reactive)
== END | disposition home or self-care (01) ==
LOC: LABWHC1 12:15
PROVIDERS: ATTEND Family Medicine
DX: Z00.00 Encounter for general adult medical examination without abnormal findings (principal); Z13.1 Encounter for screening for diabetes mellitus; R16.1 Splenomegaly, not elsewhere classified; R60.0 Localized edema; Z79.899 Other long term (current) drug therapy
CPT/HCPCS: 36415; 80053; 80061; 80074; 80178; 82553; 83036; 84439; 84443; 84484; 85025; 85610; 85652; 85730; 86140; 87390

== ENCOUNTER → 2021-12-29 | Outpatient (CLI) | payer OTHER ==
--- NOTE | 2021-12-30 08:29 | CA ---
Transthoracic Echo Report Name: Johnathan Champagne Age: 36 Gender: M : 1985 Exam Date: 12/29/2021 13:38 Exam Location: [facility] Ht (in): 72 Wt (lb): 270 Ordering Physician: Andrea Louis MD Attending/Referring Phys: Magdalena Rodriguez [facility] Hemotherapist Lilliam Shrestha RDCS Procedure CPT: Indications: R06.00 Dyspnea Cardiac Hx: Technical Quality: Fair Contrast 1: Total Dose (mL): Contrast 2: Total Dose (mL): MEASUREMENTS (Male / Female) Normal Values 2D ECHO LV Diastolic Diameter PLAX 4.1 cm 4.2 - 5.9 / 3.9 - 5.3 cm LV Systolic Diameter PLAX 3.9 cm IVS Diastolic Thickness 1.1 cm 0.6 - 1.0 / 0.6 - 0.9 cm LVPW Diastolic Thickness 1.1 cm 0.6 - 1.0 / 0.6 - 0.9 cm LV Relative Wall Thickness 0.5 RV Internal Dim ED PLAX 2.9 cm LA Systolic Diameter LX 3.7 cm 3.0 - 4.0 / 2.7 - 3.8 cm LA Volume 66.3 cm??? 18 - 58 / 22 - 52 cm??? M-MODE Aortic Root Diameter MM 2.9 cm LA Systolic Diameter MM 4.1 cm LA Ao Ratio MM 1.4 MV E Point Septal Separation 0.2 cm AV Cusp Separation MM 1.9 cm DOPPLER MV Area PHT 3.9 cm??? Mitral E Point Velocity 69.9 cm/s Mitral A Point Velocity 61.2 cm/s Mitral E to A Ratio 1.1 MV Deceleration Time 193.0 ms MV E' Velocity 10.4 cm/s Mitral E to MV E' Ratio 6.8 TR Peak Velocity 225.8 cm/s TR Peak Gradient 20.4 mmHg Right Ventricular Systolic Press 25.4 mmHg FINDINGS Left Ventricle Left ventricular ejection fraction is estimated at 50-55%. Mildly increased left ventricular wall thickness. Right Ventricle Normal right ventricular size and function. Right Atrium Normal right atrial size. Left Atrium Mildly increased left atrial volume. Mitral Valve Structurally normal mitral valve. Mild mitral regurgitation. Aortic Valve Aortic valve not well visualized. Tricuspid Valve Structurally normal tricuspid valve. Mild tricuspid regurgitation. Pulmonic Valve Pulmonic valve not well visualized. Pericardium Echo free space anterior to the right ventricle likely represents a fat pad. Aorta Normal size aortic root and proximal ascending aorta. CONCLUSIONS Left ventricular ejection fraction 50-55% Mild increased left ventricular wall thickness Mild mitral regurgitation Mild tricuspid regurgitation RVSP 25 No pericardial effusion Previewed by: Dr. Rashad Rodriguez DO (Electronically Signed) Final Date: 30 December 2021 08:28
--- NOTE | 2021-12-30 08:29 | CA ---
Transthoracic Echo Report Name: Johnathan Champagne Age: 36 Gender: M : 1985 Exam Date: 12/29/2021 13:38 Exam Location: [place] [facility] Ht (in): 72 Wt (lb): 270 Ordering Physician: Andrea Louis MD Attending/Referring Phys: Magdalena Rodriguez [facility] Esthetician [employer] Lilliam Shrestha RDCS Procedure CPT: Indications: R06.00 Dyspnea Cardiac Hx: Technical Quality: Fair Contrast 1: Total Dose (mL): Contrast 2: Total Dose (mL): MEASUREMENTS (Male / Female) Normal Values 2D ECHO LV Diastolic Diameter PLAX 4.1 cm 4.2 - 5.9 / 3.9 - 5.3 cm LV Systolic Diameter PLAX 3.9 cm IVS Diastolic Thickness 1.1 cm 0.6 - 1.0 / 0.6 - 0.9 cm LVPW Diastolic Thickness 1.1 cm 0.6 - 1.0 / 0.6 - 0.9 cm LV Relative Wall Thickness 0.5 RV Internal Dim ED PLAX 2.9 cm LA Systolic Diameter LX 3.7 cm 3.0 - 4.0 / 2.7 - 3.8 cm LA Volume 66.3 cm??? 18 - 58 / 22 - 52 cm??? M-MODE Aortic Root Diameter MM 2.9 cm LA Systolic Diameter MM 4.1 cm LA Ao Ratio MM 1.4 MV E Point Septal Separation 0.2 cm AV Cusp Separation MM 1.9 cm DOPPLER MV Area PHT 3.9 cm??? Mitral E Point Velocity 69.9 cm/s Mitral A Point Velocity 61.2 cm/s Mitral E to A Ratio 1.1 MV Deceleration Time 193.0 ms MV E' Velocity 10.4 cm/s Mitral E to MV E' Ratio 6.8 TR Peak Velocity 225.8 cm/s TR Peak Gradient 20.4 mmHg Right Ventricular Systolic Press 25.4 mmHg FINDINGS Left Ventricle Left ventricular ejection fraction is estimated at 50-55%. Mildly increased left ventricular wall thickness. Right Ventricle Normal right ventricular size and function. Right Atrium Normal right atrial size. Left Atrium Mildly increased left atrial volume. Mitral Valve Structurally normal mitral valve. Mild mitral regurgitation. Aortic Valve Aortic valve not well visualized. Tricuspid Valve Structurally normal tricuspid valve. Mild tricuspid regurgitation. Pulmonic Valve Pulmonic valve not well visualized. Pericardium Echo free space anterior to the right ventricle likely represents a fat pad. Aorta Normal size aortic root and proximal ascending aorta. CONCLUSIONS Left ventricular ejection fraction 50-55% Mild increased left ventricular wall thickness Mild mitral regurgitation Mild tricuspid regurgitation RVSP 25 No pericardial effusion Previewed by: Dr. Rashad Rodriguez DO (Electronically Signed) Final Date: 30 December 2021 08:28
== END | disposition home or self-care (01) ==
LOC: RADECHMAIN 13:33
PROVIDERS: ATTEND Family Medicine
DX: I08.1 Rheumatic disorders of both mitral and tricuspid valves (principal)
CPT/HCPCS: 93306

== ENCOUNTER 2022-05-27 14:47 | Emergency (ER) | payer OTHER ==
[2022-05-27] MEDS ORDERED: KETOROLAC 15 MG/ML 1 ML VIAL IVP STA (15:15)
[2022-05-27] MEDS ORDERED: KETOROLAC 15 MG/ML 1 ML VIAL IM STA (15:46)
--- NOTE | 2022-05-27 16:10 | XR ---
EXAMINATION TYPE: XR foot complete LT DATE OF EXAM: 05/27/2022 CLINICAL HISTORY: Pain and swelling after running injury yesterday TECHNIQUE: Frontal, lateral, and oblique images of the left foot are obtained. COMPARISON: None FINDINGS: There is no acute fracture/dislocation evident in the left foot. Some flexion in the toes makes evaluation at this level slightly suboptimal. The joint spaces in the left foot appear within n ormal limits. The overlying soft tissue appears unremarkable. IMPRESSION: There is no acute fracture or dislocation in the left foot.
--- NOTE | 2022-05-27 16:42 | ED ---
General Adult HPI - General Chief complaint: Extremity Injury, Lower Stated complaint: left foot injury Time Seen by Provider: 05/27/22 15:15 Source: patient, RN notes reviewed Mode of arrival: ambulatory Limitations: no limitations - History of Present Illness Initial comments: This is a 36-year-old male with no significant past medical history presents to the emergency department with a chief complaint of left foot pain. Patient reports that yesterday he was running after somebody and today he is reporting some worsening pain to the dorsal aspect of his left foot. He denies any known injury. He denies any previous injury. He denies any numbness or tingling to the area. He denies any weakness. He has not taken anything for his symptoms. - Related Data Home Medications Medication Instructions Recorded Confirmed Doxepin [SINEquan] 10 mg PO BID 02/28/21 02/28/21 Famotidine [Pepcid] 20 mg PO BID 02/28/21 02/28/21 Gabapentin [Neurontin] 400 mg PO BID 02/28/21 02/28/21 [place] Carbonate [[place] 300 mg PO DAILY 02/28/21 02/28/21 Carbonate ER] buPROPion XL [Wellbutrin XL] 150 mg PO DAILY 02/28/21 02/28/21 cloNIDine HCL [Catapres] 0.2 mg PO BID 02/28/21 02/28/21 Previous Rx's Medication Instructions Recorded Omeprazole [PriLOSEC] 40 mg PO DAILY #14 cap 10/25/20 clindamycin HCL [Clindamycin HCl] 300 mg PO Q6HR 10 Days #40 cap 07/25/21 Allergies Allergy/AdvReac Type Severity Reaction Status Date / Time Penicillins Allergy Unknown Verified 05/27/22 15:04 Childhood Review of Systems ROS Statement: Those systems with pertinent positive or pertinent negative responses have been documented in the HPI. ROS Other: All systems not noted in ROS Statement are negative. Past Medical History Past Medical History: Asthma Additional Past Medical History / Comment(s): gallstones History of Any Multi-Drug Resistant Organisms: None Reported, MRSA Date of last positivie culture/infection: 05/2020 MDRO Source:: inner left thigh Past Surgical History: Cholecystectomy Past Psychological History: Anxiety, Depression Smoking Status: Current every day smoker Past Alcohol Use History: Occasional Past Drug Use History: Marijuana General Exam Limitations: no limitations General appearance: alert, in no apparent distress Head exam: Present: atraumatic, normocephalic, normal inspection Eye exam: Present: normal appearance, PERRL, EOMI. Absent: scleral icterus, conjunctival injection, periorbital swelling ENT exam: Present: normal exam, mucous membranes moist Neck exam: Present: normal inspection. Absent: tenderness, meningismus, lymphadenopathy Respiratory exam: Present: normal lung sounds bilaterally. Absent: respiratory distress, wheezes, rales, rhonchi, stridor Cardiovascular Exam: Present: regular rate, normal rhythm, normal heart sounds. Absent: systolic murmur, diastolic murmur, rubs, gallop, clicks GI/Abdominal exam: Present: soft, normal bowel sounds. Absent: distended, tenderness, guarding, rebound, rigid Extremities exam: Present: normal inspection, full ROM, normal capillary refill. Absent: tenderness, pedal edema, joint swelling, calf tenderness Left Lower Leg exam: Present: normal inspection, full ROM. Absent: tenderness, swelling, Homans' sign Ankle exam: Present: normal inspection, full ROM. Absent: tenderness, swelling Foot/Toe exam: Present: normal inspection (DT/PT pulses 2+ bilaterally, Distal NVI ), full ROM, tenderness (5th metatarsal region ). Absent: swelling, ecchymosis, deformity, crepitus Back exam: Present: normal inspection Neurological exam: Present: alert, oriented X3, CN II-XII intact Psychiatric exam: Present: normal affect, normal mood Skin exam: Present: warm, dry, intact, normal color. Absent: rash Course Vital Signs 05/27/22 05/27/22 15:01 17:01 Temperature 97.9 F 98.0 F Pulse Rate 68 60 Respiratory 20 16 Rate Blood Pressure 136/83 111/72 O2 Sat by Pulse 99 97 Oximetry Medical Decision Making - Medical Decision Making Was pt. sent in by a medical professional or institution (, PA, FERMENTATION SCIENTIST, urgent care, hospital, or snf...) When possible be specific @ -[No] Did you speak to anyone other than the patient for history (EMS, parent, family, police, friend...)? What history was obtained from this source @ -[No] Did you review nursing and triage notes (agree or disagree)? Why? @ -[I reviewed and agree with nursing and triage notes] Were old charts reviewed (outside hosp., previous admission, EMS record, old EKG, old radiological studies, urgent care reports/EKG's, snf records)? Report findings @ -[No old charts were reviewed] Differential Diagnosis (chest pain, altered mental status, abdominal pain women, abdominal pain men, vaginal bleeding, weakness, fever, dyspnea, syncope, headache, dizziness, GI bleed, back pain, seizure, CVA, palpatations, mental health, musculoskeletal)? @ -[not applicable] EKG interpreted by me (3pts min.). @ -[As above] X-rays interpreted by me (1pt min.). @ -X-ray of left foot negative for any evidence of fracture or dislocation CT interpreted by me (1pt min.). @ -[None done] U/S interpreted by me (1pt. min.). @ -[None done] What testing was considered but not performed or refused? (CT, X-rays, U/S, labs )? Why? @ -[None] What meds were considered but not given or refused? Why? @ -[None] Did you discuss the management of the patient with other professionals (professionals i.e. , PA, FERMENTATION SCIENTIST, lab, RT, psych nurse, social media manager, type casting machine operator, teacher, founder and chief technical officer, case investigator)? Give summary @ -[No] Was smoking cessation discussed for >3mins.? @ -[No] Was critical care preformed (if so, how long)? @ -[No] Were there social determinants of health that impacted care today? How? (Homelessness, low income, unemployed, alcoholism, drug addiction, transportation, low edu. Level, literacy, decrease access to med. care, fci, rehab)? @ -[No] Was there de-escalation of care discussed even if they declined (Discuss DNR or withdrawal of care, Hospice)? DNR status @ -[No] What co-morbidities impacted this encounter? (DM, HTN, Smoking, COPD, CAD, Cancer, CVA, ARF, Chemo, Hep., AIDS, mental health diagnosis, sleep apnea, morbid obesity)? @ -[None] Was patient admitted / discharged? Hospital course, mention meds given and route, prescriptions, significant lab abnormalities, going to OR and other pert inent info. @ -Discharged. This is a 36-year-old male presents with left pain. Patient had a thorough history and physical exam performed on the ED. Physical exam essentially unremarkable left lower extremity without any evidence of erythema or swelling. There is no evidence of trauma. Patient able to ambulate with steady gait. X-rays were negative. I discussed with him. Return precautions were followed up with orthopedists in 10-14 feet the symptoms resolved. I discussed the case with DIONNE Delong who agrees with plan of care Undiagnosed new problem with uncertain prognosis? @ -[No] Drug Therapy requiring intensive monitoring for toxicity (Heparin, Nitro, Insulin, Cardizem)? @ -[No] Were any procedures done? @ -[No] Diagnosis/symptom? @ -left foot sprian Acute, or Chronic, or Acute on Chronic? @ -acute Uncomplicated (without systemic symptoms) or Complicated (systemic symptoms)? @ -uncomplicated Side effects of treatment? @ -[No] Exacerbation, Progression, or Severe Exacerbation? @ -[No] Poses a threat to life or bodily function? How? (Chest pain, [place], NH, pneumonia, PE, COPD, DKA, ARF, appy, cholecystitis, CVA, Diverticulitis, Homicidal, Suicidal, threat to staff... and all critical care pts) @ -low likelihood Disposition Clinical Impression: Sprain of left foot Disposition: HOME SELF-CARE Condition: Stable Instructions (If sedation given, give patient instructions): Foot Sprain (ED) Additional Instructions: Please follow-up with Dr. marcos Batres's office within 10-14 days for follow-up Please take Tylenol or Motrin as needed you can rotate every 2 hours between the 2. Please elevate the extremity. Please use ice or heat whichever he can tolerate. These return to the nearest emergency department if symptoms worsen or persist. Is patient prescribed a controlled substance at d/c from ED?: No Referrals: Andrea Louis MD [Primary Care Provider] - 1-2 days Hilario Chávez DO [Doctor of Osteopathic Medicine] - 1-2 days Time of Disposition: 16:41
[2022-05-27 17:02] VITALS: BP 111/72; PULSE 60; RESP 16; TEMP 98
== END 2022-05-27 17:02 | disposition home or self-care (01) ==
LOC: EC 14:47
DX: S93.602A Unspecified sprain of left foot, initial encounter (principal); J45.909 Unspecified asthma, uncomplicated; F32.A Depression, unspecified; F41.9 Anxiety disorder, unspecified; F17.200 Nicotine dependence, unspecified, uncomplicated; F12.90 Cannabis use, unspecified, uncomplicated; Z88.0 Allergy status to penicillin; X58.XXXA Exposure to other specified factors, initial encounter; Y93.02 Activity, running
CPT/HCPCS: 73630; 99283; 96372; J1885

== ENCOUNTER → 2024-02-06 | Outpatient (CLI) | payer OTHER ==
--- NOTE | 2024-02-06 14:07 | XR ---
EXAMINATION TYPE: XR abdomen complete w decub DATE OF EXAM: 02/06/2024 COMPARISON: 03/21/2016 HISTORY: 38-year-old male R10.9, unspecified abdominal pain FINDINGS: No evidence for free intraperitoneal air. Lung bases are clear. No dilated small bowel. No differential air-fluid levels. Scattered air within the colon. Mild stool in the right side of the [place]. No suspicious calcifications are seen. IMPRESSION: No evidence for free air or bowel obstruction. Mild stool in the right side of the abdomen. [facility], , 02/06/2024 2:05 PM
== END | disposition home or self-care (01) ==
LOC: RADXRMAIN 12:21
PROVIDERS: ATTEND Internal Medicine Gastroenterology
DX: R10.9 Unspecified abdominal pain (principal)
CPT/HCPCS: 74021

== ENCOUNTER → 2024-04-11 | Outpatient (CLI) | payer OTHER ==
--- NOTE | 2024-04-11 13:01 | FL ---
EXAMINATION TYPE: FL UGI air w small bowel DATE OF EXAM: 04/11/2024 11:50 AM COMPARISON: 03/21/2016 CLINICAL INDICATION:Male, 38 years old with history of R10.9 UNSPECIFIED ABDOMINAL PAIN; TECHNIQUE: The procedure was explained and patient history elicited. All patient questions were ans wered prior to start of procedure. A grain manager radiograph of the abdomen was also reviewed. Multiple flu oroscopic spot images of the esophagus, stomach and duodenum were obtained following ingestion of liq uid barium and EZ-gas crystals. After the completion of the upper gastrointestinal examination, a de tailed small bowel examination was performed. The patient was asked to ingest additional liquid heidy um and incremental frontal abdominal radiographs were then taken until contrast was visualized in the cecum. Fluoroscopic time: 1.13 minutes Fluoroscopic images:0 Radiographs taken: 410 DAP: NOT REPORTED [id number] FINDINGS: Upper GI examination: The grain manager abdominal radiograph demonstrates a normal bowel gas pattern without dilated loops of small or large bowel. There is no evidence for organomegaly or pneumoperitoneum. No abnormal calcificati ons. The visualized osseous structures are intact. The esophagus appears unremarkable without evidence of focal stricture, ulceration or abnormal outpou mery. No hiatal hernia was visualized. No evidence of gastroesophageal reflux was seen when the p atient was instructed to bear down. The stomach and duodenum demonstrate a normal course and contour. There is no evidence of focal gastric or duodenal ulceration, stricture, or abnormal outpouching. S mall bowel mucosal folds are felt to be within normal limits. Detailed small bowel examination: Contrast is seen extending from the duodenojejunal junction into the cecum after two hours, which is within the expected time period. The small bowel follows normal distribution and contour without any evidence of extraluminal or intraluminal irregularity. There is no displacement of bowel loops or e xtraluminal extravasation of contrast material. IMPRESSION: 1. Normal upper gastrointestinal examination. 2. Normal detailed small bowel examination. [facility], , 04/11/2024 12:59 PM
== END | disposition home or self-care (01) ==
LOC: RADFLMAIN 08:48
PROVIDERS: ATTEND Internal Medicine Gastroenterology
DX: R10.9 Unspecified abdominal pain (principal)
CPT/HCPCS: 74240; 74248